=== PATIENT | male | born 1955 | race Caucasian/White ===

== ENCOUNTER 2021-12-22 20:58 | Inpatient (IN) | payer MEDICARE, SELFPAY ==
[2021-12-22 21:25] VITALS: BP 161/84; PULSE 80; RESP 20; TEMP 36.3; O2SAT 96
[2021-12-22 21:30] VITALS: BMI 39.6
[2021-12-22] MEDS: Nicotine Polacrilex Lozenge 2 MG LOZENGE BUCCAL (23:19)
[2021-12-22 23:33] LABS: Glucose, Whole Blood 113 mg/dL (60-115)
[2021-12-22] MEDS: LORazepam 1 MG TABLET PO (23:47)
[2021-12-22] MEDS: Divalproex Sodium ER 500 MG TAB.ER.24H 1500 MG PO (23:47)
[2021-12-22] MEDS: QUEtiapine Fumarate 300 MG TABLET PO (23:47)
[2021-12-22] MEDS: Atorvastatin Calcium 10 MG TABLET PO (23:47)
[2021-12-22] MEDS: Diclofenac Sodium Delayed Rel 50 MG TABLET.DR PO (23:59)
[2021-12-22] MEDS: Lurasidone HCl 20 MG TABLET PO (23:59)
--- NOTE | 2021-12-22 23:59 | PC.ADMIT ---
66yo male admitted from [facility] ED arrived via EMS transport @2118; signed a CV, and immediately requested and signed a 3Day Notice. Patient admitting diagnosis: Paranoia. Medical History: HTN; HLD; CAD; DMII; chronic pain; TRISTA, utilizes CPAP. History of multiple psychiatric IPLOC r/t Bipolar d/o and paranoid thoughts, most recently hospitalized at [facility]; patient not known to [facility]. Per crisis report patient was brought into the ER 12/18 @4am after Pt barricaded himself in his home with multiple weapons believing the FBI was after him. Patient reports he hadn't slept for multiple days prior to the issue leading him into the ER. Upon admission to the unit patient's thought process is linear and coherent, speech remains rapid; elevated mood; patient has some insight to his situation and currently denies the paranoid thoughts, although states I won't call the pipeline superintendent again, because that is what landed me here. Patient reports drinking 2-6 Guinness beers daily along BaiNovints several times a week; last drink was 12/17/21, no s/sx of withdrawal at this time. Tox Screen: (+)Marijuana. Patient reports he is in process of quitting smoking cigarettes; currently smokes half pack/day; order for lozenges obtained at patient's request. Patient describes a developed working relationship with outpatient medication prescriber from [facility]; signed Legals and placed in chart. Med rec completed. Orders obtained from On-Call Psychiatrist. Patient denies SI/HI. Placed on 15 minute checks for safety. At patient's request, he was given copies of all forms he signed during the admission process.
--- NOTE | 2021-12-23 01:08 | PC.NURSE ---
Patient signed a 3 Day Notice 12/22 @ 2130, placed in chart; General Merchandise Salesperson Covering Psychiatrist alerted via Emer[employer] Text; SWs and UR alerted via email. Patient was given a copy of signed form at his request.
[2021-12-23 07:15] VITALS: BP 134/75; PULSE 66; RESP 16; TEMP 36.1; O2SAT 95
[2021-12-23 07:50] LABS: Glucose, Whole Blood 95 mg/dL (60-115)
[2021-12-23] MEDS: Multivitamin TABLET 1 TAB PO (08:28)
[2021-12-23] MEDS: metFORMIN HCl 500 MG TABLET PO (08:28)
[2021-12-23] MEDS: Divalproex Sodium ER 250 MG TAB.ER.24H PO (08:28)
[2021-12-23] MEDS: Triamterene/HCTZ 37.5/25 TABLET 1 TAB PO (08:28)
[2021-12-23] MEDS: amLODIPine Besylate 5 MG TABLET PO (08:29)
[2021-12-23] MEDS: Thiamine HCL 100 MG TABLET PO (08:29)
[2021-12-23] MEDS: Bumetanide 1 MG TABLET 2 MG PO (13:04)
[2021-12-23] MEDS: Diclofenac Sodium Delayed Rel 50 MG TABLET.DR PO ×2 (13:04→21:56)
[2021-12-23] MEDS: Nicotine Polacrilex Lozenge 2 MG LOZENGE BUCCAL (13:14)
--- NOTE | 2021-12-23 13:56 | HO.PSYADMNOT ---
HPI Date of Service: 12/23/21 Chief Complaint: psychosis Sources of Information: patient interviewed, chart reviewed and crisis/core team assessment reviewed HPI Subjective Notes: Conditional Voluntary and 3 Day Narrative: The patient is a 66-year-old male, , father of 2 adult children, living by himself, retired with good social support referred from hospital out of our catchment area for psychotic symptoms. The patient suffers of bipolar disorder that was diagnosed when he was 57 and he stated that a few days ago he started thinking that the FBI was after him and they put Bovie traps and they were trying to hurt him. The patient denies noncompliance with his medications, He admitted that he is an alcoholic and he was using alcohol before been rushed to the emergency room. He was assessed by the crisis service and transferred to this facility for psychiatric stabilization. He was in the emergency room for several days and according to the notes of the emergency room, the patient had been fully compliant of his medications. On interview, the patient adamantly denies paranoia, he stated that since he is taking all his meds and apparently his medications were increase in the emergency room, those crazy thoughts are not there anymore . he signed a 3 day notice and he wants to go back home. At this moment, the patient denies of manic symptoms or depression, he is able to contract for safety he denies safety concerns. He gave us consent to contact his providers and collateral information. Past Psychiatric History: As per the patient, he was diagnosed of bipolar disorder addition 57 and he has at least 8 prior admissions. He stated that he is an alcoholic and he has periods of sobriety on and off but his last use of alcohol was a few hours before of the admission to the emergency room. 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 Substance History: He admitted abusing alcohol since early age, he denies prior treatment such as detox or rehab, he still actively using alcohol Trauma History: denies Diagnostics Vital Signs (24Hr): Vital Signs - 24 hr 12/22/21 21:25 12/23/21 07:15 Temperature 97.4 F 97 F Pulse Rate 80 66 Respiratory Rate 20 16 Blood Pressure 161/84 H 134/75 Pulse Oximetry 96 95 BMI result Body Mass Index 39.6 Labs Labs: Laboratory Results - last 48 hr 12/22/21 12/23/21 23:28 07:42 POC Glucose 113 95 Meds/Allergies Meds Home Medications Acetaminophen (Acetaminophen 325 Mg Tablet) 650 mg PO Q6H PRN PRN Reason: Headache/Pain Mild Scale (1-3) Al Hydroxide/Mg Hydroxide (Magnesium Hydrox/Alum Hydrox 30 Ml Oral.Susp) 30 ml PO Q6H PRN PRN Reason: Heartburn/Nausea Amlodipine Besylate (Amlodipine Besylate 5 Mg Tablet) 5 mg PO DAILY [facility]; Protocol Last Admin: 12/23/21 08:29 Dose: 5 mg Documented by: Atorvastatin Calcium (Atorvastatin Calcium 10 Mg Tablet) 10 mg PO BEDTIME [facility] Last Admin: 12/22/21 23:47 Dose: 10 mg Documented by: Bumetanide (Bumetanide 1 Mg Tablet) 2 mg PO DAILY [facility]; Protocol Last Admin: 12/23/21 13:04 Dose: 2 mg Documented by: Calcium Carbonate (Calcium Carbonate 500 Mg Tablet) 1,500 mg PO DAILY [facility] Last Admin: 12/23/21 13:07 Dose: 1,500 mg Documented by: Diclofenac Sodium (Diclofenac Sodium Delayed Rel 50 Mg Tablet.) 50 mg PO BID [facility] Last Admin: 12/23/21 13:04 Dose: 50 mg Documented by: Divalproex Sodium (Divalproex Sodium Er 500 Mg Tab.Er.24h) 1,500 mg PO BEDTIME [facility] Last Admin: 12/22/21 23:47 Dose: 1,500 mg Documented by: Divalproex Sodium (Divalproex Sodium Er 250 Mg Tab.Er.24h) 250 mg PO DAILY [facility] Last Admin: 12/23/21 08:28 Dose: 250 mg Documented by: Hydroxyzine HCl (Hydroxyzine Hcl 25 Mg Tablet) 25 mg PO BEDTIME PRN PRN Reason: Anxiety Lorazepam (Lorazepam 1 Mg Tablet) 1 mg PO BID [facility] Last Admin: 12/23/21 12:59 Dose: Not Given Documented by: Lurasidone HCl (Lurasidone Hcl 20 Mg Tablet) 20 mg PO DAILY@1700 [facility] Last Admin: 12/22/21 23:59 Dose: 20 mg Documented by: Magnesium Hydroxide (Milk Of Magnesia 30 Ml Oral.Susp) 30 ml PO DAILY PRN PRN Reason: Constipation Metformin HCl (Metformin Hcl 500 Mg Tablet) 500 mg PO DAILY@0800 [facility] Last Admin: 12/23/21 08:28 Dose: 500 mg Documented by: Multivitamins/Vitamin C (Multivitamin Tablet) 1 tab PO DAILY [facility] Last Admin: 12/23/21 08:28 Dose: 1 tab Documented by: Nicotine Polacrilex (Nicotine Polacrilex Lozenge 2 Mg Lozenge) 2 mg BUCCAL Q1H PRN PRN Reason: Nicotine Cravings Last Admin: 12/23/21 13:14 Dose: 2 mg Documented by: Quetiapine Fumarate (Quetiapine Fumarate 300 Mg Tablet) 300 mg PO BEDTIME [facility] Last Admin: 12/22/21 23:47 Dose: 300 mg Documented by: Spironolactone (Spironolactone 25 Mg Tablet) 25 mg PO DAILY [facility]; Protocol Last Admin: 12/23/21 12:59 Dose: Not Given Documented by: Thiamine HCl (Thiamine Hcl 100 Mg Tablet) 100 mg PO DAILY [facility] Last Admin: 12/23/21 08:29 Dose: 100 mg Documented by: Trazodone HCl (Trazodone Hcl 50 Mg Tablet) 50 mg PO BEDTIME PRN PRN Reason: Insomnia Triamterene/Hydrochlorothiazide (Triamterene/Hctz 37.5/25 Tablet) 1 tab PO DAILY [facility]; Protocol Last Admin: 12/23/21 08:28 Dose: 1 tab Documented by: Zolpidem Tartrate (Zolpidem Tartrate 5 Mg Tablet) 5 mg PO BEDTIME PRN PRN Reason: Insomnia Allergies Allergies Allergy/AdvReac Type Severity Reaction Status Date / Time No Known Allergies Allergy Verified 12/22/21 21:33 Mental Status Exam Mental Status Exam Patient Appearance: Well Grooomed Patient Orientation: Person and Situation Level of Consciousness: Awake and Appropriate Patient Behavior: Cooperative Mood Description: Withdrawn and Appropriate Affect Description: Constricted Patient Cognition Impaired: No Ability to Follow Directions: Good Speech Pattern: Clear Hallucinations: None Delusions: Not Present Thought Process: Linear Thought Content: positive for Circumstantial Judgement: Fair Assessment & Plan Assessment & Plan (1) Bipolar disorder: Status: Acute Code(s): F31.9 - Bipolar disorder, unspecified (2) Alcohol use disorder, moderate, dependence: Status: Acute Code(s): F10.20 - Alcohol dependence, uncomplicated (3) Psychotic disorder: Status: Acute Code(s): F29 - Unspecified psychosis not due to a substance or known physiological condition Plan the patient is an elderly male with a long history of bipolar disorder and alcohol use disorder who was brought into the facility from the emergency room of the hospital out of our catchment area since he complained of paranoid delusions stating that the FBI was following and getting him. He was intoxicated with alcohol and he and he was abusing alcohol before of the admission to the emergency room. At this moment he denies psychosis and he wants to be discharged. Plan 1. Gather collateral information. 2. Continue same medications. 3. Get a Depakote level and other blood work. Patient educated on: diagnosis and therapeutic strategies Informed Consent: understands Reason for continued inpatient stay Substantial Risk for: inability to function, rapid decompensation and med/psych decompensation
--- NOTE | 2021-12-23 14:21 | P.CONIM_ITS ---
History of Present Illness Data of Consult Service Date: 12/23/21 Primary Care Provider: Unknown Physician HPI Reason for consult: Routine Medical H&P This is a 66 yo M with a PMH of HTN, TRISTA, DM, HLD, (Denies CAD, but noted in RN notes), Bipolar disorder who is admitted to [facility]. Medical consult requested for medical H&P. Patient is seen and examined in his room. He denies any new medical complaints. He reports chronic back pain for which he has received 1 injection about 1 month. Denies any weakness in the LE bilaterally. Reports he drink 3-6 beers of Guinness - more on the weekend. Last drink 7 days ago. Denies prior withdrawal symptoms. PMH HTN TRISTA pre-DM HLD question CAD -- although the patient denies any cardiac history including CHF and CAD PSH Hernia surgery Eye surgery as an /toddler SH Tobacco use -- down to 1/2 PPD Alcohol use -- 3-6 beers daily Intermittent marijuana use FH HLD, DM Review of Systems Review of Systems: negative except HPI [facility] Medical History Chronic pain Continuous positive airway pressure dependent Coronary artery disease Diabetes mellitus, type 2 Hypercholesteremia Hypertension Sleep apnea Social History Household Members: None Housing: House Do you presently have visiting nurse or other home services: No Patient Tobacco Use Status: Current everyday Tobacco user Tobacco use type: Cigarette Cigarette Packs Per Day: 0.5 Cigarettes Per Day: 10.0 Years Smoked: 25 Smoked in Last 30 Days: Yes Patient Interested in Nicotine Replacement: Yes (Lozenges) Patient Given Instructions on How to Stop Smoking: Yes (patient has been using Quit Smoking Hotline) Date Education Initiated: 12/22/21 Substance Use Type: Marijuana Substance Use Frequency: Occasionally Last Used Substance: Days (ago) Last Used Substance Other:: edibles to help with sleep taken prior to going to ER on 12/18 Currently Displaying Signs/Symptoms of Drug Intoxication Withdrawal: No Any prior treatment program specific to substance use: Yes Have you been hit, kicked, punched, or otherwise hurt by someone within the past year? If so, by whom?: No Do you feel safe in your current relationship?: No Current Relationship Is there a partner from a previous relationship who is making you feel unsafe now?: No Are you made to feel afraid or neglected: No Advance Directives: No Advance Directives Information Provided: No Do you have thoughts of harming others: None Do you have a plan to hurt others: No Plan Recently lost weight without trying: No Nutrition Risks: No Nutritional Risk Poor oral hygiene: No Meds Allergies Allergy/AdvReac Type Severity Reaction Status Date / Time No Known Allergies Allergy Verified 12/22/21 21:33 Active Medications: Current Medications Acetaminophen (Acetaminophen 325 Mg Tablet) 650 mg PO Q6H PRN PRN Reason: Headache/Pain Mild Scale (1-3) Al Hydroxide/Mg Hydroxide (Magnesium Hydrox/Alum Hydrox 30 Ml Oral.Susp) 30 ml PO Q6H PRN PRN Reason: Heartburn/Nausea Amlodipine Besylate (Amlodipine Besylate 5 Mg Tablet) 5 mg PO DAILY [facility]; Protocol Last Admin: 12/23/21 08:29 Dose: 5 mg Documented by: Atorvastatin Calcium (Atorvastatin Calcium 10 Mg Tablet) 10 mg PO BEDTIME [facility] Last Admin: 12/22/21 23:47 Dose: 10 mg Documented by: Bumetanide (Bumetanide 1 Mg Tablet) 2 mg PO DAILY [facility]; Protocol Last Admin: 12/23/21 13:04 Dose: 2 mg Documented by: Calcium Carbonate (Calcium Carbonate 500 Mg Tablet) 1,500 mg PO DAILY [facility] Last Admin: 12/23/21 13:07 Dose: 1,500 mg Documented by: Diclofenac Sodium (Diclofenac Sodium Delayed Rel 50 Mg Tablet.Dr) 50 mg PO BID [facility] Last Admin: 12/23/21 13:04 Dose: 50 mg Documented by: Divalproex Sodium (Divalproex Sodium Er 500 Mg Tab.Er.24h) 1,500 mg PO BEDTIME [facility] Last Admin: 12/22/21 23:47 Dose: 1,500 mg Documented by: Divalproex Sodium (Divalproex Sodium Er 250 Mg Tab.Er.24h) 250 mg PO DAILY [facility] Last Admin: 12/23/21 08:28 Dose: 250 mg Documented by: Hydroxyzine HCl (Hydroxyzine Hcl 25 Mg Tablet) 25 mg PO BEDTIME PRN PRN Reason: Anxiety Lorazepam (Lorazepam 1 Mg Tablet) 1 mg PO BID [facility] Last Admin: 12/23/21 12:59 Dose: Not Given Documented by: Lurasidone HCl (Lurasidone Hcl 20 Mg Tablet) 20 mg PO DAILY@1700 [facility] Last Admin: 12/22/21 23:59 Dose: 20 mg Documented by: Magnesium Hydroxide (Milk Of Magnesia 30 Ml Oral.Susp) 30 ml PO DAILY PRN PRN Reason: Constipation Metformin HCl (Metformin Hcl 500 Mg Tablet) 500 mg PO DAILY@0800 [facility] Last Admin: 12/23/21 08:28 Dose: 500 mg Documented by: Multivitamins/Vitamin C (Multivitamin Tablet) 1 tab PO DAILY [facility] Last Admin: 12/23/21 08:28 Dose: 1 tab Documented by: Nicotine Polacrilex (Nicotine Polacrilex Lozenge 2 Mg Lozenge) 2 mg BUCCAL Q1H PRN PRN Reason: Nicotine Cravings Last Admin: 12/23/21 13:14 Dose: 2 mg Documented by: Quetiapine Fumarate (Quetiapine Fumarate 300 Mg Tablet) 300 mg PO BEDTIME [facility] Last Admin: 12/22/21 23:47 Dose: 300 mg Documented by: Spironolactone (Spironolactone 25 Mg Tablet) 25 mg PO DAILY [facility]; Protocol Last Admin: 12/23/21 12:59 Dose: Not Given Documented by: Thiamine HCl (Thiamine Hcl 100 Mg Tablet) 100 mg PO DAILY [facility] Last Admin: 12/23/21 08:29 Dose: 100 mg Documented by: Trazodone HCl (Trazodone Hcl 50 Mg Tablet) 50 mg PO BEDTIME PRN PRN Reason: Insomnia Triamterene/Hydrochlorothiazide (Triamterene/Hctz 37.5/25 Tablet) 1 tab PO DAILY [facility]; Protocol Last Admin: 12/23/21 08:28 Dose: 1 tab Documented by: Zolpidem Tartrate (Zolpidem Tartrate 5 Mg Tablet) 5 mg PO BEDTIME PRN PRN Reason: Insomnia Home Medications Medication Instructions Recorded Confirmed Last Taken Type Voltaren 50 mg PO BIDPC 12/22/21 12/22/21 12/20/21 21:09 History 50 mg. amlodipine 5 mg tablet 5 mg PO DAILY 12/22/21 12/22/21 12/21/21 09:00 History 5 mg. atorvastatin 10 mg tablet 10 mg PO BEDTIME 12/22/21 12/22/21 12/20/21 21:07 History 10 mg. bumetanide 2 mg tablet 2 mg PO DAILY 05/12/22/21 12/20/21 10:24 History 2 mg. calcium carbonate 500 mg calcium 1,250 mg PO DAILY 12/22/21 12/22/21 12/21/21 08:00 History (1,250 mg) tablet 1,250 mg divalproex 250 mg tablet,extended 250 mg PO DAILY 12/22/21 12/22/21 12/20/21 10:27 History release 24 hr 250 mg divalproex 500 mg tablet,extended 1,500 mg PO BEDTIME 12/22/21 12/22/21 12/20/21 21:07 History release 24 hr 1,500 mg lorazepam 1 mg tablet 1 mg PO BID 12/22/21 12/22/21 12/20/21 22:08 History 1 mg lurasidone 20 mg tablet 20 mg PO QPM 12/22/21 12/22/21 12/20/21 21:07 History 20 mg metformin 500 mg tablet 500 mg PO DAILY 12/22/21 12/22/21 12/20/21 10:24 History 500 mg. multivitamin 1 tab PO DAILY 12/22/21 12/22/21 12/21/21 09:00 History 1 tablet quetiapine 300 mg tablet,extended 300 mg PO BEDTIME 12/22/21 12/22/21 12/20/21 22:08 History release 24 hr 300 MG. spironolactone 25 mg PO DAILY 12/22/21 12/22/21 12/20/21 10:24 History 25 mg. triamterene 37.5 See Rx Instructions .ROUTE .COMPLEX 12/22/21 12/22/21 12/20/21 10:24 History mg-hydrochlorothiazide 25 mg 37.5-25 mg. capsule vitamin B complex 1 tab PO DAILY 12/22/21 12/22/21 12/21/21 08:20 History 100 mg zolpidem 5 mg tablet 5 mg PO BEDTIME PRN 12/22/21 12/22/21 12/20/21 00:17 History 5 mg Physical Exam Vital Signs and Narrative: Vital Signs: Last Vital Signs Temp 97 F 12/23/21 07:15 Pulse 66 12/23/21 07:15 Resp 16 12/23/21 07:15 BP 134/75 12/23/21 07:15 Pulse Ox 95 12/23/21 07:15 BMI result Body Mass Index 39.6 Const: Other: General - no acute distress, appears comfortable Cardiovascular - regular rate and rhythm, S1-S2, chronic le edema and associated skin changes Lungs - normal respiratory effort, clear to auscultation bilaterally, no wheezing Abdomen - soft, nontender, no rebound or guarding Extremities - no edema bilaterally Neuro - awake and alert, no focal deficits; cn 2-12 intact bilaterally Results Labs Labs: Laboratory Results - last 24 hr 12/22/21 12/23/21 23:28 07:42 POC Glucose 113 95 Assessment and Plan (1) Routine medical exam: Status: Acute Plan 66 yo M with multiple medical issues admitted to the [facility]. Medical consult requested for routine medical H&P. The patient appears to be medically stable at this time. He has been counseled on age appropriate preventative care. He also also been encouraged complete tobacco, alcohol and marijuana cessation. His last drink was about 7 days ago and at this time he is not exhibiting any withdrawal signs or symptoms. Continue to monitor for withdrawal. Will sign off at this time. Please reconsult PRN. Thank you.
[2021-12-23] MEDS: Lurasidone HCl 20 MG TABLET PO (17:40)
[2021-12-23 20:22] LABS: Glucose, Whole Blood 98 mg/dL (60-115)
[2021-12-23 20:34] VITALS: BP 143/79; PULSE 78; RESP 18; TEMP 36.4; O2SAT 95
[2021-12-23] MEDS: QUEtiapine Fumarate 300 MG TABLET PO (21:56)
[2021-12-23] MEDS: Divalproex Sodium ER 500 MG TAB.ER.24H 1500 MG PO (21:56)
[2021-12-23] MEDS: LORazepam 1 MG TABLET PO (21:56)
[2021-12-23] MEDS: Atorvastatin Calcium 10 MG TABLET PO (21:57)
[2021-12-24 07:15] VITALS: BP 137/71; PULSE 77; RESP 16; TEMP 36.1; O2SAT 98
[2021-12-24 07:54] LABS: Glucose, Whole Blood 91 mg/dL (60-115)
--- NOTE | 2021-12-24 08:25 | P.PNPSI_ITS ---
Subjective Subjective Date of Service: 12/24/21 Reason For Visit: psychosis Subjective Notes: Conditional Voluntary and 3 Day Interim History: The nursing staff reported the patient has been pleasant, cooperative and med compliant but he is very talkative with racing thoughts. He slept 7 hours. On interview, the patient reported that he is doing fine and he wants to leave the unit. He adamantly denies suicidal or homicidal thoughts, he denies paranoia but so far, we don't have collaterai information. Diagnostics Vital Signs (24Hr): Vital Signs - 24 hr 12/23/21 20:34 12/24/21 07:15 Temperature 97.6 F 97.0 F Pulse Rate 78 77 Respiratory Rate 18 16 Blood Pressure 143/79 H 137/71 Pulse Oximetry 95 98 BMI result Body Mass Index 39.6 Labs Results: 12/24/21 08:20 Labs: Laboratory Results - last 48 hr 12/22/21 12/23/21 12/23/21 23:28 07:42 20:18 POC Glucose 113 95 98 12/24/21 07:48 POC Glucose 91 Medications Medications Current Medications Acetaminophen (Acetaminophen 325 Mg Tablet) 650 mg PO Q6H PRN PRN Reason: Headache/Pain Mild Scale (1-3) Al Hydroxide/Mg Hydroxide (Magnesium Hydrox/Alum Hydrox 30 Ml Oral.Susp) 30 ml PO Q6H PRN PRN Reason: Heartburn/Nausea Amlodipine Besylate (Amlodipine Besylate 5 Mg Tablet) 5 mg PO DAILY [facility]; Protocol Last Admin: 12/23/21 08:29 Dose: 5 mg Documented by: Atorvastatin Calcium (Atorvastatin Calcium 10 Mg Tablet) 10 mg PO BEDTIME [facility] Last Admin: 12/23/21 21:57 Dose: 10 mg Documented by: Bumetanide (Bumetanide 1 Mg Tablet) 2 mg PO DAILY [facility]; Protocol Last Admin: 12/23/21 13:04 Dose: 2 mg Documented by: Calcium Carbonate (Calcium Carbonate 500 Mg Tablet) 1,500 mg PO DAILY [facility] Last Admin: 12/23/21 13:07 Dose: 1,500 mg Documented by: Diclofenac Sodium (Diclofenac Sodium Delayed Rel 50 Mg Tablet.) 50 mg PO BID [facility] Last Admin: 12/23/21 21:56 Dose: 50 mg Documented by: Divalproex Sodium (Divalproex Sodium Er 500 Mg Tab.Er.24h) 1,500 mg PO BEDTIME [facility] Last Admin: 12/23/21 21:56 Dose: 1,500 mg Documented by: Divalproex Sodium (Divalproex Sodium Er 250 Mg Tab.Er.24h) 250 mg PO DAILY [facility] Last Admin: 12/23/21 08:28 Dose: 250 mg Documented by: Hydroxyzine HCl (Hydroxyzine Hcl 25 Mg Tablet) 25 mg PO BEDTIME PRN PRN Reason: Anxiety Lorazepam (Lorazepam 1 Mg Tablet) 1 mg PO BID [facility] Last Admin: 12/23/21 21:56 Dose: 1 mg Documented by: Lurasidone HCl (Lurasidone Hcl 20 Mg Tablet) 20 mg PO DAILY@1700 [facility] Last Admin: 12/23/21 17:40 Dose: 20 mg Documented by: Magnesium Hydroxide (Milk Of Magnesia 30 Ml Oral.Susp) 30 ml PO DAILY PRN PRN Reason: Constipation Metformin HCl (Metformin Hcl 500 Mg Tablet) 500 mg PO DAILY@0800 [facility] Last Admin: 12/23/21 08:28 Dose: 500 mg Documented by: Multivitamins/Vitamin C (Multivitamin Tablet) 1 tab PO DAILY [facility] Last Admin: 12/23/21 08:28 Dose: 1 tab Documented by: Nicotine Polacrilex (Nicotine Polacrilex Lozenge 2 Mg Lozenge) 2 mg BUCCAL Q1H PRN PRN Reason: Nicotine Cravings Last Admin: 12/23/21 13:14 Dose: 2 mg Documented by: Quetiapine Fumarate (Quetiapine Fumarate 300 Mg Tablet) 300 mg PO BEDTIME [facility] Last Admin: 12/23/21 21:56 Dose: 300 mg Documented by: Spironolactone (Spironolactone 25 Mg Tablet) 25 mg PO DAILY [facility]; Protocol Last Admin: 12/23/21 12:59 Dose: Not Given Documented by: Thiamine HCl (Thiamine Hcl 100 Mg Tablet) 100 mg PO DAILY [facility] Last Admin: 12/23/21 08:29 Dose: 100 mg Documented by: Trazodone HCl (Trazodone Hcl 50 Mg Tablet) 50 mg PO BEDTIME PRN PRN Reason: Insomnia Triamterene/Hydrochlorothiazide (Triamterene/Hctz 37.5/25 Tablet) 1 tab PO DAILY [facility]; Protocol Last Admin: 12/23/21 08:28 Dose: 1 tab Documented by: Zolpidem Tartrate (Zolpidem Tartrate 5 Mg Tablet) 5 mg PO BEDTIME PRN PRN Reason: Insomnia Allergies Allergies Allergy/AdvReac Type Severity Reaction Status Date / Time No Known Allergies Allergy Verified 12/22/21 21:33 Assessment & Plan Assessment & Plan (1) Routine medical exam: Status: Acute Code(s): Z00.00 - Encounter for general adult medical examination without abnormal findings Plan 66 yo M with multiple medical issues admitted to the [facility]. Medical consult requested for routine medical H&P. The patient appears to be medically stable at this time. He has been counseled on age appropriate preventative care. He also also been encouraged complete tobacco, alcohol and marijuana cessation. His last drink was about 7 days ago and at this time he is not exhibiting any withdrawal signs or symptoms. Continue to monitor for withdrawal. Plan: Keep same treatment VALP for tomorrow I spent ___20___ minutes with the patient and/or on the patient floor today, greater than?50% of which was spent counseling/coordinating care. Reason for contiued inpatient stay Substantial Risk for: inability to function, rapid decompensation and med/psych decompensation
[2021-12-24] MEDS: Diclofenac Sodium Delayed Rel 50 MG TABLET.DR PO ×2 (08:36→21:53)
[2021-12-24] MEDS: Triamterene/HCTZ 37.5/25 TABLET 1 TAB PO (08:36)
[2021-12-24] MEDS: Thiamine HCL 100 MG TABLET PO (08:36)
[2021-12-24] MEDS: metFORMIN HCl 500 MG TABLET PO (08:36)
[2021-12-24] MEDS: amLODIPine Besylate 5 MG TABLET PO (08:36)
[2021-12-24] MEDS: Divalproex Sodium ER 250 MG TAB.ER.24H PO (08:36)
[2021-12-24] MEDS: Multivitamin TABLET 1 TAB PO (08:37)
[2021-12-24] MEDS: Bumetanide 1 MG TABLET 2 MG PO (08:38)
[2021-12-24 09:12] LABS: Creatinine Clr Calc Pharmacy 76.7; Estimated Glomerular Filt Rate > 60
--- NOTE | 2021-12-24 10:44 | PC.NURSE ---
Discussed pt. in Treatment Team this AM. Present were this keno writer / runner, social workers Carmen Malone and Yolanda Payne, and Dr. Sanders. Pt. has no hx. and is not presenting with SI. He uses BIPAP at night, which presents as a ligature risk. Team in agreement that pt. is low risk for attempts to self harm, and would be appropriate to have video monitoring while CPAP is in use vs. 1:1 with staff.
[2021-12-24] MEDS: Lurasidone HCl 20 MG TABLET PO (17:56)
[2021-12-24 18:00] VITALS: BP 129/91; PULSE 80; TEMP 36.4; O2SAT 96
[2021-12-24] MEDS: Divalproex Sodium ER 500 MG TAB.ER.24H 1500 MG PO (21:53)
[2021-12-24] MEDS: LORazepam 1 MG TABLET PO (21:53)
[2021-12-24] MEDS: QUEtiapine Fumarate 300 MG TABLET PO (21:53)
[2021-12-24] MEDS: Atorvastatin Calcium 10 MG TABLET PO (21:53)
[2021-12-24] MEDS: Zolpidem Tartrate 5 MG TABLET PO (21:53)
[2021-12-24 23:12] LABS: Glucose, Whole Blood 120 mg/dL (60-115)
[2021-12-25 07:00] VITALS: BP 149/70; PULSE 71; RESP 18; TEMP 36.1; O2SAT 97
[2021-12-25 08:03] LABS: MANUAL DIFF FLAG NO
[2021-12-25 08:05] LABS: Glucose, Whole Blood 95 mg/dL (60-115)
[2021-12-25 08:12] LABS: Basophils Percent Auto 0.8 % (0-2); Eosinophils Absolute Auto 0.2 X10*3/uL (0.0-0.4); Eosinophils Percent Auto 3.6 % (0-4); Hematocrit 38.9 % (42.0-52.0); Hemoglobin 13.4 g/dl (14.0-18.0); Imm Gran Abs Auto 0.02 X10*3/uL (0.00-0.03); Imm Gran Pct Auto 0.4 % (0.0-0.4); Lymphocytes Absolute Auto 1.5 X10*3/uL (1.2-4.9); Lymphocytes Percent Auto 32.3 % (20-40); Mean Corpuscular HGB Conc 34.4 g/dl (31.0-36.0); Mean Corpuscular Hemoglobin 30.8 pg (27.0-33.0); Mean Corpuscular Volume 89.4 fL (80.0-98.0); Mean Platelet Volume 9.3 fL (9.4-12.4); Monocytes Absolute Auto 0.5 X10*3/uL (0.1-1.2); Monocytes Percent Auto 11.3 % (2-11); Neutrophils Absolute Auto 2.4 x10*3/uL (2.0-8.3); Neutrophils Percent Auto 51.6 % (45-73); Platelet Count 236 X10*3/uL (160-400); Red Blood Count 4.35 X10*6/uL (4.60-5.80); Red Cell Distribution Width 12.4 % (11.0-16.0); White Blood Count 4.7 X10*3/uL (4.8-10.8)
[2021-12-25 08:24] LABS: Alanine Aminotransferase 15 U/L (0-40); Albumin Level 4.1 g/dL (3.5-5.0); Alkaline Phosphatase 79 U/L (39-117); Anion Gap 13 (12-20); Aspartate Amino Transferase 15 U/L (5-37); Bilirubin Direct 0.2 mg/dL (0.0-0.5); Bilirubin Total 0.4 mg/dL (0.0-1.0); Blood Urea Nitrogen 26 mg/dL (9-16); Calcium 10.3 mg/dL (8.4-10.2); Carbon Dioxide 34 mmol/L (22-29); Chloride 88 mmol/L (96-108); Cholesterol 148 mg/dL; Creatinine Clr Calc Pharmacy 74.6; Estimated Glomerular Filt Rate > 60; Glucose Random 89 mg/dL (60-115); HDL Cholesterol 39 mg/dL; LDL Cholesterol Calculated 64 mg/dl; Potassium 3.9 mmol/L (3.3-5.1); Sodium 131 mmol/L (135-145); Total Protein 7.1 g/dL (6.5-8.0); Triglycerides 227 mg/dL
[2021-12-25] MEDS: Diclofenac Sodium Delayed Rel 50 MG TABLET.DR PO (08:47)
[2021-12-25] MEDS: metFORMIN HCl 500 MG TABLET PO (08:47)
[2021-12-25] MEDS: Thiamine HCL 100 MG TABLET PO (08:47)
[2021-12-25] MEDS: Bumetanide 1 MG TABLET 2 MG PO (08:47)
[2021-12-25] MEDS: amLODIPine Besylate 5 MG TABLET PO (08:47)
[2021-12-25] MEDS: Triamterene/HCTZ 37.5/25 TABLET 1 TAB PO (08:48)
[2021-12-25] MEDS: Divalproex Sodium ER 250 MG TAB.ER.24H PO (08:48)
[2021-12-25] MEDS: Multivitamin TABLET 1 TAB PO (08:48)
[2021-12-25 09:24] LABS: Estimated Average Glucose 111 mg/dL; Hemoglobin A1c % 5.5 %
--- NOTE | 2021-12-25 10:50 | P.DS_ITS ---
DS: Providers Provider Date of Service: 12/25/21 Date of admission: 12/22/21 20:58 Date of discharge: 12/25/21 Primary care physician: Unknown Physician Consults: 12/22/21 23:21 Consult to Hospitalist Routine Consulting Provider: Hospitalist Reason For Exam: OSH admission Attending physician on discharge: James Sanders DS: Diagnosis Discharge Diagnosis (1) Routine medical exam: Status: Acute DS: Medications Discharge Medications Home Medications: Home Medications Medication Instructions Recorded Confirmed Voltaren 50 mg PO BIDPC 12/22/21 12/22/21 amlodipine 5 mg tablet 5 mg PO DAILY 12/22/21 12/22/21 atorvastatin 10 mg tablet 10 mg PO BEDTIME 12/22/21 12/22/21 bumetanide 2 mg tablet 2 mg PO DAILY 12/22/21 12/22/21 calcium carbonate 500 mg calcium 1,250 mg PO DAILY 12/22/21 12/22/21 (1,250 mg) tablet divalproex 250 mg tablet,extended 250 mg PO DAILY 12/22/21 12/22/21 release 24 hr divalproex 500 mg tablet,extended 1,500 mg PO BEDTIME 12/22/21 12/22/21 release 24 hr lorazepam 1 mg tablet 1 mg PO BID 12/22/21 12/22/21 lurasidone 20 mg tablet 20 mg PO QPM 12/22/21 12/22/21 metformin 500 mg tablet 500 mg PO DAILY 12/22/21 12/22/21 multivitamin 1 tab PO DAILY 12/22/21 12/22/21 quetiapine 300 mg tablet,extended 300 mg PO BEDTIME 12/22/21 12/22/21 release 24 hr spironolactone 25 mg PO DAILY 12/22/21 12/22/21 triamterene 37.5 See Rx Instructions .ROUTE .COMPLEX 12/22/21 12/22/21 mg-hydrochlorothiazide 25 mg capsule vitamin B complex 1 tab PO DAILY 12/22/21 12/22/21 zolpidem 5 mg tablet 5 mg PO BEDTIME PRN 12/22/21 12/22/21 Mental Status Exam Mental Status Exam Patient Appearance: Well Grooomed Patient Orientation: Person, Place and Situation Level of Consciousness: Awake Patient Behavior: Appropriate and Cooperative Mood Description: Calm and Suspicious Affect Description: Constricted Patient Cognition Impaired: No Ability to Follow Directions: Good Speech Pattern: Clear Hallucinations: None Delusions: Not Present Thought Process: Linear Thought Content: positive for Racing and positive for [place] Judgement: Fair Data Data Completed and Pending Completed studies during hospitalization [Text1]: 12/22/21 12/23/21 12/23/21 23:28 07:42 20:18 WBC RBC Hgb Hct MCV MCH MCHC RDW Plt Count MPV Immature Gran % (Auto) Neut % (Auto) Lymph % (Auto) [place] % (Auto) Eos % (Auto) Baso % (Auto) Lymph # (Auto) [place] # (Auto) Eos # (Auto) Baso # (Auto) Abs Immat Gran (auto) Absolute Neuts (auto) Absolute Nucleated RBC Nucleated RBC % (auto) Sodium Potassium Chloride Carbon Dioxide Anion Gap BUN Creatinine Estim Creat Clear Calc Estimated GFR POC Glucose 113 95 98 Random Glucose Estimat Average Glucose Hemoglobin A1c % Calcium Total Bilirubin Direct Bilirubin AST ALT Alkaline Phosphatase Total Protein Albumin Triglycerides Cholesterol LDL Cholesterol, Calc HDL Cholesterol Valproic Acid 12/24/21 12/24/21 12/24/21 07:48 08:20 23:08 WBC RBC Hgb Hct MCV MCH MCHC RDW Plt Count MPV Immature Gran % (Auto) Neut % (Auto) Lymph % (Auto) [place] % (Auto) Eos % (Auto) Baso % (Auto) Lymph # (Auto) [place] # (Auto) Eos # (Auto) Baso # (Auto) Abs Immat Gran (auto) Absolute Neuts (auto) Absolute Nucleated RBC Nucleated RBC % (auto) Sodium Potassium Chloride Carbon Dioxide Anion Gap BUN Creatinine 1.08 Estim Creat Clear Calc 76.7 Estimated GFR > 60 POC Glucose 91 120 H Random Glucose Estimat Average Glucose Hemoglobin A1c % Calcium Total Bilirubin Direct Bilirubin AST ALT Alkaline Phosphatase Total Protein Albumin Triglycerides Cholesterol LDL Cholesterol, Calc HDL Cholesterol Valproic Acid 12/25/21 12/25/21 12/25/21 07:45 07:45 07:45 WBC 4.7 L RBC 4.35 L Hgb 13.4 L Hct 38.9 L MCV 89.4 MCH 30.8 MCHC 34.4 RDW 12.4 Plt Count 236 MPV 9.3 L Immature Gran % (Auto) 0.4 Neut % (Auto) 51.6 Lymph % (Auto) 32.3 [place] % (Auto) 11.3 H Eos % (Auto) 3.6 Baso % (Auto) 0.8 Lymph # (Auto) 1.5 [place] # (Auto) 0.5 Eos # (Auto) 0.2 Baso # (Auto) 0.0 Abs Immat Gran (auto) 0.02 Absolute Neuts (auto) 2.4 Absolute Nucleated RBC 0.000 Nucleated RBC % (auto) 0.0 Sodium 131 L Potassium 3.9 Chloride 88 L Carbon Dioxide 34 H Anion Gap 13 BUN 26 H Creatinine 1.11 Estim Creat Clear Calc 74.6 Estimated GFR > 60 POC Glucose Random Glucose 89 Estimat Average Glucose 111 Hemoglobin A1c % 5.5 Calcium 10.3 H Total Bilirubin 0.4 Direct Bilirubin 0.2 AST 15 ALT 15 Alkaline Phosphatase 79 Total Protein 7.1 Albumin 4.1 Triglycerides 227 Cholesterol 148 LDL Cholesterol, Calc 64 HDL Cholesterol 39 Valproic Acid Pending 12/25/21 08:00 WBC RBC Hgb Hct MCV MCH MCHC RDW Plt Count MPV Immature Gran % (Auto) Neut % (Auto) Lymph % (Auto) [place] % (Auto) Eos % (Auto) Baso % (Auto) Lymph # (Auto) [place] # (Auto) Eos # (Auto) Baso # (Auto) Abs Immat Gran (auto) Absolute Neuts (auto) Absolute Nucleated RBC Nucleated RBC % (auto) Sodium Potassium Chloride Carbon Dioxide Anion Gap BUN Creatinine Estim Creat Clear Calc Estimated GFR POC Glucose 95 Random Glucose Estimat Average Glucose Hemoglobin A1c % Calcium Total Bilirubin Direct Bilirubin AST ALT Alkaline Phosphatase Total Protein Albumin Triglycerides Cholesterol LDL Cholesterol, Calc HDL Cholesterol Valproic Acid DS: Summary Hospital Course Hospital Course: The patient was admitted from the emergency room of the hospital that was out of our catchment area for symptoms of psychosis elicited by paranoid delusions, auditory hallucinations and disorganized behavior. The patient carries a diagnosis also bipolar disorder. Please see HPI of the admission note for further details. The patient was transferred to this facility from the emergency room, according to the chart the patient was in the hospital on the emergency room for several days until they found his bed. he carries also the diagnosis of alcohol use disorder and apparently he had been drinking more in the last days. The patient has been fully compliant with treatment on the emergency room. On admission the patient adamantly denied any psychotic symptoms and he acknowledged that he has been noncompliant with treatment And drinking alcoholand that is why he decompensated but he stated that he was safe and ready to be discharged. The patient has signed conditional voluntary admission paperwork and later a 3 day notice. We tried to get collateral information but the patient sign releases of information only to some limited extent. While he was in the unit, the patient was pleasant and cooperative with good eye contact, interacting with peers and staff in an appropriate manner. He was notice that he was slightly hypomanic with fast speech and grandiose delusions but mostly fairly logical with good safety awareness. The patient adamantly denied suicidal or homicidal ideation and he acknowledged that it was not appropriate to barricade himself in his apartment and he realized that the FBI was not following him. Since there were no safety concerns, we could not have criteria for filing Section 7 and 8 and discharge planning was started. Time spent discussing smoking cessation with patient: 3 to 10 minutes Status at Discharge Cognitive/behavioral status at discharge: at baseline Functional status at discharge: independent ambulation Overall status at discharge: patient is back to baseline Time Spent with Patient Time attestation: Total time spent providing and/or coordinating discharge services: Time spent: Less than 30 minutes Discharge Plan Discharge Patient Disposition: Home, Self-Care Discharge Diagnosis: bipolar disorder. Alcohol use disorder Referrals: [facility] [Other] - 3-5 Days (Protective worker is CHICHO Pena called and informed her of discharge today, she will follow up with Kristofer in the community post discharge from unit.) Alissa Champion (psychiatrists) @ [facility] [Other] - 01/29/22 11:30 am (Appt scheduled with Dr. Alissa Reyes on Thursday, January 29, 2022 @ 11:30 AM [facility].) [place] [employer] [facility], [facility] [Other] - 3-5 Days (CHICHO called and left message for Kassandra Frost informing her Kristofer will be discharging today @ 1 PM. ) Physician,Unknown J [Primary Care Provider] - 1 Week Discharge Medications: New multivitamin [Daily-David] Tablet 1 tab PO DAILY Qty: 30 0RF metformin 500 mg Tablet 500 mg PO DAILY@0800 Qty: 30 0RF atorvastatin 10 mg Tablet 10 mg PO BEDTIME 30 Days Qty: 30 0RF amlodipine 5 mg Tablet 5 mg PO DAILY 30 Days Qty: 30 0RF Protocol: Hold for SBP< HOLD for SBP < : 90 spironolactone 25 mg Tablet 25 mg PO DAILY 30 Days Qty: 30 0RF Protocol: Hold for SBP< HOLD for SBP < : 90 calcium carbonate [Oyster Shell Calcium 500] 500 mg calcium (1,250 mg) Tablet 1,500 mg PO DAILY Qty: 30 0RF triamterene-hydrochlorothiazid 37.5-25 mg Tablet 1 tab PO DAILY Qty: 30 0RF Protocol: Hold for SBP< HOLD for SBP < : 90 bumetanide 1 mg Tablet 2 mg PO DAILY Qty: 60 0RF Protocol: Hold for SBP< HOLD for SBP < : 90 diclofenac sodium 50 mg Tablet,Delayed Release (Dr/Ec) 50 mg PO BID 30 Days Qty: 60 0RF thiamine mononitrate (vit B1) 100 mg Tablet 100 mg PO DAILY Qty: 30 0RF Continued divalproex 500 mg Tablet Extended Release 24 Hr 1,500 mg PO BEDTIME 30 Days Qty: 90 0RF zolpidem 5 mg Tablet 5 mg PO BEDTIME PRN (Reason: Insomnia) 30 Days Qty: 30 0RF lorazepam 1 mg Tablet 1 mg PO BID 30 Days Qty: 60 0RF Rx Instructions: Give in AM and at bedtime divalproex 250 mg Tablet Extended Release 24 Hr 250 mg PO DAILY 30 Days Qty: 30 0RF quetiapine 300 mg Tablet Extended Release 24 Hr 300 mg PO BEDTIME 30 Days Qty: 30 0RF lurasidone 20 mg Tablet 20 mg PO QPM 30 Days Qty: 30 0RF Rx Instructions: must administer with food (at least 350 calories) Discontinued multivitamin Tablet 1 tab PO DAILY 0RF metformin 500 mg Tablet 500 mg PO DAILY 0RF Rx Instructions: take w/ breakfast bumetanide 2 mg Tablet 2 mg PO DAILY 0RF atorvastatin 10 mg Tablet 10 mg PO BEDTIME 0RF amlodipine 5 mg Tablet 5 mg PO DAILY 0RF calcium carbonate 500 mg calcium (1,250 mg) Tablet 1,250 mg PO DAILY 0RF vitamin B complex [Vitamin B-100] Tablet 1 tab PO DAILY 0RF Voltaren 50 MG tablet 50 mg PO BIDPC 0RF spironolactone 25 mg 25 mg PO DAILY 0RF triamterene-hydrochlorothiazid 37.5-25 mg Capsule See Rx Instructions .ROUTE .COMPLEX 0RF Rx Instructions: Take 37.5-25 mg po in the morning Discharge Orders: Discharge Order (Routine); Ordered 12/25/21 Ordered By: James Sanders Diet: advance to usual diet Activity on Discharge: As tolerated Stand Alone Forms: Patient Portal Discharge page Care Plan Goals: care plan goals achieved in this admission Health Concerns: continue treatment with primary care physician as an outpatient Plan of Treatment: continue medication management and psychotherapy with regular providers Assessment: the patient is an elderly male with a history of alcohol use disorder and bipolar disorder who was admitted from out of our catchment area for psychotic symptoms in the context of noncompliance and alcohol abuse. The patient on admission did not show any signs or symptoms of psychosis and he was able to contract for safety. Since there were no safety concerns discharge planning was discussed.
--- NOTE | 2021-12-25 11:20 | PC.NURSE ---
Pt. A&Ox4, pt. has good memory and is medication compliant. He expresses some paranoia surrounding his bank transactions. Pt. ambulates independently with a strong and steady gait. He is hyperverbal. Pt. signed a three day upon arrival and has verbalized that he feels ready to be d/c. He has been given all paperwork, belongings, and instructions on d/c and medications. Pt. PCP was called for a d/c follow up appointment, and a voicemail was left for staff which included the [place] of [facility]. Pt. denies SI/HI/AVH. VS stable and this nurse did not observe any concerning behaviors by pt.
== END 2021-12-25 15:10 | disposition home or self-care (01) | DRG 885 ==
PROVIDERS: Admitting Provider Psychiatry & Neurology Psychiatry; Visit Provider Psychiatry & Neurology Psychiatry
DX: F31.9 Bipolar disorder, unspecified (principal); G89.29 Other chronic pain; G47.33 Obstructive sleep apnea (adult) (pediatric); E78.5 Hyperlipidemia, unspecified; I25.10 Atherosclerotic heart disease of native coronary artery without angina pectoris; F10.20 Alcohol dependence, uncomplicated; E11.9 Type 2 diabetes mellitus without complications; F17.210 Nicotine dependence, cigarettes, uncomplicated; Z71.6 Tobacco abuse counseling; Z79.899 Other long term (current) drug therapy
CPT/HCPCS: 36415; 80048; 80061; 80076; 80164; 82565; 82947; 83036; 85025